=== PATIENT | female | born 1945 | race Caucasian/White ===

== ENCOUNTER 2017-03-01 08:40 | Inpatient (IN) | payer MEDICARE, OTHER ==
[~2017-03-01 08:40] MED LIST: AMLODIPINE BESY10 M1 PO; ASPIR 8181 MG; ASPIRIN EC81 MG PO; ATENOLOL25 MG; BENEFIBER1 EAC1 PO; CALCIUM 600 +1 EA12 PO; CARDURA4 MG; CARDURA8 M1 PO; CITRACAL + D CA1 TAB; COLACE100 M1 PO; COZAAR100 M1 PO; FLUTICASONE PRO16 G1; HYDROXYCHLOROQ200 M2 PO; KLOR-CON 1010 MEQ; LASIX40 M1 PO; LASIX40 MG; LEVOXYL75 MCG; MIRALAX17 G2 PO; NORVASC5 MG; OMEPRAZOLE40 M2 PO; PHENTERMINE H37.5 M2 PO; PLAQUENIL200 MG; POTASSIUM CHLO10 ME2 PO; PRAVACHOL40 M1 PO; PRAVASTATIN SOD40 M1 PO; PREMPRO 0.625/21 TAB; PRILOSEC20 MG; RANITIDINE HCL150 MG; REFRESH TEARS15 ML; SYNTHROID88 MC1 PO; THERA-M CAPLET1 EAC1 PO; TYLENOL EXTRA500 MG; VITAMIN D32000 UNI2 PO
[2017-03-01 10:07] LABS: PROTHROMBIN TIME 11.7 SECONDS (9.0-13.6)
[2017-03-02 05:11] LABS: BASO % 0.1 % (0-2); HCT-HEMATOCRIT 30.6 % (34.0-49.0); HGB-HEMOGLOBIN 10.3 gm/dl (12.0-15.5); IMMATURE GRANULOCYTES ABSOLUTE 0.02 tho/cmm (0-0.03); IMMATURE GRANULOCYTES PERCENT 0.2 % (0-0.3); LYMPH % 13.1 % (20-45); LYMPH ABSOLUTE COUNT 1.3 tho/cmm (0.8-4.5); MCH (MEAN CORPUSCULAR HGB) 30.7 pg (28.0-32.0); MCHC MEAN CORPUSCULAR HGB CONC 33.7 % (32.0-36.0); MCV (MEAN CELL VOLUME) 91.1 fl (82.0-96.0); MEAN PLATELET VOLUME 10.6 cmc (9.4-12.4); MONO % 7.2 % (0-12); MONOCYTE ABSOLUTE COUNT 0.7 tho/cmm (0.0-1.2); NEUTROPHIL ABSOLUTE COUNT 7.8 tho/cmm (1.6-8.0); NEUTROPHIL-AUTOMATED 7.8 tho/cmm (1.6-8.0); NEUTROPHILS % 79.4 % (40-80); PLATELET COUNT 162 tho/cmm (150-450); RED BLOOD COUNT 3.36 mil/cmm (4.00-5.20); RED CELL DISTRIBUTION WIDTH 14.2 % (12.4-16.4); WHITE BLOOD COUNT 9.8 tho/cmm (4.0-10.0)
[2017-03-02 05:14] LABS: ANION GAP 12 mmol/L (0-20); BLOOD UREA NITROGEN 22 mg/dl (6-24); CALCIUM 8.3 mg/dl (8.5-10.5); CARBON DIOXIDE-VENOUS 24 mmol/L (22-32); CHLORIDE 108 mmol/l (96-110); GLUCOSE 95 mg/dL (70-110); POTASSIUM 4.1 mmol/L (3.7-5.1); SODIUM 140 mmol/L (135-145); eGFR VALUE FOR BLACK 74 mL/Min
[2017-03-04 05:30] LABS: BASO % 0.3 % (0-2); EOS % 6.1 % (0-7); EOSINOPHIL ABSOLUTE COUNT 0.4 tho/cmm (0.0-0.7); HCT-HEMATOCRIT 27.9 % (34.0-49.0); HGB-HEMOGLOBIN 9.3 gm/dl (12.0-15.5); IMMATURE GRANULOCYTES ABSOLUTE 0.01 tho/cmm (0-0.03); IMMATURE GRANULOCYTES PERCENT 0.2 % (0-0.3); LYMPH % 15.6 % (20-45); MCH (MEAN CORPUSCULAR HGB) 30.7 pg (28.0-32.0); MCHC MEAN CORPUSCULAR HGB CONC 33.3 % (32.0-36.0); MCV (MEAN CELL VOLUME) 92.1 fl (82.0-96.0); MONO % 13.6 % (0-12); MONOCYTE ABSOLUTE COUNT 0.9 tho/cmm (0.0-1.2); NEUTROPHIL ABSOLUTE COUNT 4.1 tho/cmm (1.6-8.0); NEUTROPHIL-AUTOMATED 4.1 tho/cmm (1.6-8.0); NEUTROPHILS % 64.2 % (40-80); PLATELET COUNT 140 tho/cmm (150-450); RED BLOOD COUNT 3.03 mil/cmm (4.00-5.20); RED CELL DISTRIBUTION WIDTH 14.2 % (12.4-16.4); WHITE BLOOD COUNT 6.4 tho/cmm (4.0-10.0)
[2017-03-04 05:43] LABS: ANION GAP 8 mmol/L (0-20); BLOOD UREA NITROGEN 18 mg/dl (6-24); CARBON DIOXIDE-VENOUS 28 mmol/L (22-32); CHLORIDE 105 mmol/l (96-110); CREATININE 1.02 mg/dl (0.50-1.10); GLUCOSE 97 mg/dL (70-110); POTASSIUM 4.1 mmol/L (3.7-5.1); SODIUM 137 mmol/L (135-145); eGFR VALUE FOR BLACK 63 mL/Min
[2017-03-04] MEDS ORDERED: ROXICODONE5 M2 PO (13:11)
[2017-03-04] MEDS ORDERED: ULTRAM50 M1 PO (13:11)
[2017-03-04] MEDS ORDERED: TYLENOL325 M2 PO (13:12)
[2017-03-04] MEDS ORDERED: MOBIC7.5 M2 PO (13:20)
[2017-03-04] MEDS ORDERED: NORCO 5-325 TA1 EACH PO (15:37)
[2017-03-04] MEDS ORDERED: ZOFRAN4 M2 PO (15:37)
== END 2017-03-04 20:50 | disposition home health service (06) | DRG 470 ==
LOC: SHSC 08:40 → ORE 11:05 → PACU 12:46 → PCUA 17:50 → 5EA 03-02 17:08
PROVIDERS: Internal Medicine; Internal Medicine Cardiovascular Disease; ADMIT Orthopaedic Surgery Foot and Ankle Surgery
PROC: 0SRC0J9 Replacement of Right Knee Joint with Synthetic Substitute, Cemented, Open Approach (ICD-10-PCS; principal; 2017-03-01)
PROC: 5A09357 Assistance with Respiratory Ventilation, Less than 24 Consecutive Hours, Continuous Positive Airway Pressure (ICD-10-PCS; 2017-03-02)
DX: M17.11 Unilateral primary osteoarthritis, right knee (principal); G62.9 Polyneuropathy, unspecified; D63.8 Anemia in other chronic diseases classified elsewhere; M35.00 Sjogren syndrome, unspecified; F41.9 Anxiety disorder, unspecified; K21.9 Gastro-esophageal reflux disease without esophagitis; M79.7 Fibromyalgia; Z79.82 Long term (current) use of aspirin; M47.9 Spondylosis, unspecified; H04.129 Dry eye syndrome of unspecified lacrimal gland; I10 Essential (primary) hypertension; E03.9 Hypothyroidism, unspecified; M13.0 Polyarthritis, unspecified; E66.9 Obesity, unspecified; G47.33 Obstructive sleep apnea (adult) (pediatric); Z68.32 Body mass index [BMI] 32.0-32.9, adult; G50.0 Trigeminal neuralgia
CPT/HCPCS: C1713; C1776; J0171; J1885; J2270; J2300; J2405; J2550; J2765; J2795